=== PATIENT | female | born 1995 | race Caucasian/White ===

== ENCOUNTER 2017-10-24 09:20 | Emergency (ER) | payer SELFPAY ==
--- NOTE | 2017-10-24 09:48 | ED Physician Chart ---
ED Chief Complaint/HPI - Patient Information Date Seen:: 10/24/17 Time Seen:: 09:40 Chief Complaint:: Pelvic pain History of Present Illness:: 22 yo female had a copper IUD placed two weeks ago for 6-8 years history of abnormal vaginal bleeding. Subsequently, she developed pelvic pain, fluctuating from 6/10 to 10/10. She also had vaginal bleeding for 5 days after the IUD placement and stopped. Two days ago, vaginal bleeding resumed. Patient denied nausea, vomiting, fever or chills. Patient requested IUD to be removed. Allergies:: Allergies Allergy/AdvReac Type Severity Reaction Status Date / Time No Known Allergies Allergy Verified 10/24/17 09:28 Vitals:: Vital Signs - 8 hr 10/24/17 09:29 Temp 97.5 F HR 80 RR 16 BP 129/86 O2 Sat % 97 ED Review of Systems - Review of Systems General/Constitutional: No fever, No chills Skin: No skin lesions Head: No headache Eyes: No pain ENT: No nasal drainage Neck: No neck pain Cardio Vascular: No chest pain Pulmonary: No SOB GI: No nausea, No vomiting Slope Tender: Abnormal vaginal bleeding, Other (Pelvic pain) Musculoskeletal: No bone or joint pain Psychiatric: No prior psych history Neurological: No focal symptoms ED Past Medical History - Past Medical History Past Medical History: Other (menorrhagia for 6-8 years) Social History: Non Smoker, No Alcohol, No Drug Use Surgical History: None ED Physical Exam - Physical Examination General/Constitutional: Awake Head: Atraumatic Eyes: PERRL Skin: No skin lesions ENMT: Nasal exam nl Neck: No nuchal rigidity Respiratory: Clear to Auscultation Cardio Vascular: RRR, No murmur, gallop, rubs, NL S1 S2 GI: No tenderness/rebounding/guarding Other comments:: Vaginal exam showed blood clot and fresh blood at the cervix, IUD strings are visible at the cervix. Extremities: normal strength in all extremities Neuro/Psych: No focal deficits ED Labs/Radiology/EKG Results - Lab Results Results: Laboratory Last Values WBC 7.5 Th/cmm (4.8-10.8) 10/24/17 10:00 RBC 4.75 Mil/cmm (3.80-5.10) 10/24/17 10:00 Hgb 14.0 gm/dL (12-16) 10/24/17 10:00 Hct 41.6 % (41.0-60) 10/24/17 10:00 MCV 87.5 fl (81-100) 10/24/17 10:00 MCH 29.5 pg (27.0-31.0) 10/24/17 10:00 MCHC Differential 33.7 pg (28.0-36.0) 10/24/17 10:00 RDW 12.3 % (11.5-20.0) 10/24/17 10:00 Plt Count 194 Th/cmm (150-400) 10/24/17 10:00 MPV 8.8 fl 10/24/17 10:00 Neutrophils % 64.4 % (40.0-80.0) 10/24/17 10:00 Lymphocytes % 22.3 % (20.0-50.0) 10/24/17 10:00 Monocytes % 5.5 % (2.0-10.0) 10/24/17 10:00 Eosinophils % 4.6 % (0.0-5.0) 10/24/17 10:00 Basophils % 3.2 % (0.0-2.0) H 10/24/17 10:00 PT 11.0 SECONDS (9.5-11.5) 10/24/17 10:00 INR 1.06 (0.5-1.4) 10/24/17 10:00 PTT (Actin FS) 24.2 SECONDS (26.0-38.0) L 10/24/17 10:00 Sodium 137 mEq/L (136-145) 10/24/17 10:00 Potassium 4.5 mEq/L (3.5-5.1) 10/24/17 10:00 Chloride 106 mEq/L (98-107) 10/24/17 10:00 Carbon Dioxide 23.9 mEq/L (21.0-31.0) 10/24/17 10:00 Anion Gap 11.6 (7.0-16.0) 10/24/17 10:00 BUN 8 mg/dL (7-25) 10/24/17 10:00 Creatinine 0.7 mg/dL (0.6-1.2) 10/24/17 10:00 Est GFR ( Amer) > 60.0 ml/min (>90) 10/24/17 10:00 Est GFR (Non-Af Amer) > 60.0 ml/min 10/24/17 10:00 BUN/Creatinine Ratio 11.4 10/24/17 10:00 Glucose 110 mg/dL (70-105) H 10/24/17 10:00 Calcium 9.1 mg/dL (8.6-10.3) 10/24/17 10:00 Total Bilirubin 0.2 mg/dL (0.3-1.0) L 10/24/17 10:00 AST 15 U/L (13-39) 10/24/17 10:00 ALT 19 U/L (7-52) 10/24/17 10:00 Alkaline Phosphatase 92 U/L (34-104) 10/24/17 10:00 Total Protein 6.8 gm/dL (6.0-8.3) 10/24/17 10:00 Albumin 4.2 gm/dL (3.7-5.3) 10/24/17 10:00 Globulin 2.6 gm/dL 10/24/17 10:00 Albumin/Globulin Ratio 1.6 (1.0-1.8) 10/24/17 10:00 Urine Source RANDOM 10/24/17 10:35 Urine Color YELLOW 10/24/17 10:35 Urine Clarity HAZY (CLEAR) 10/24/17 10:35 Urine pH 6.0 (4.6 - 8.0) 10/24/17 10:35 Ur Specific [place] 1.020 (1.005-1.030) 10/24/17 10:35 Urine Protein NEGATIVE mg/dL (NEGATIVE) 10/24/17 10:35 Urine Glucose (UA) NEGATIVE mg/dL (NEGATIVE) 10/24/17 10:35 Urine Ketones NEGATIVE mg/dL (NEGATIVE) 10/24/17 10:35 Urine Blood LARGE (NEGATIVE) H 10/24/17 10:35 Urine Nitrate NEGATIVE (NEGATIVE) 10/24/17 10:35 Urine Bilirubin NEGATIVE (NEGATIVE) 10/24/17 10:35 Urine Urobilinogen 0.2 E.U./dL (0.2 - 1.0) 10/24/17 10:35 Ur Leukocyte Esterase NEGATIVE (NEGATIVE) 10/24/17 10:35 Urine RBC >100 /hpf (0-5) H 10/24/17 10:35 Urine WBC 2-5 /hpf (0-5) 10/24/17 10:35 Ur Epithelial Cells FEW /lpf (FEW) 10/24/17 10:35 Urine Bacteria 1+ /hpf (NONE SEEN) H 10/24/17 10:35 Urine Test NEGATIVE 10/24/17 10:35 - Radiology Results Results: Pelvic u/s: IUD in place, no other abnormalities ED Assessment - Assessment General Assessment: Pelvic pain Abnormal vaginal bleeding s/p IUD placement Assessment/Comments:: CBC, CMP, UA PT/PTT Removed IUD D/c home F/u Slope Tender or return to ER if abnormal vaginal bleeding persisted - Procedures Procedures:: Removal of IUD: Used vaginal spatula to expose cervix and IUD strings. Used curved hemostat clamp to reach and clamp the IUD strings, pulled the strings and the entire IUD out of the cervix without be bleeding or other complications. Removed the spatula. Patient tolerated the procedure well. Informed Consent: Procedure/risk/benefits explained by MD: Yes ED Septic Shock - . Is Septic Shock (SBP<90, OR Lactate>4 mmol\L) present?: No - <6hrs of presentation: Vital Signs: Vital Signs - 8 hr 10/24/17 09:29 Temp 97.5 F HR 80 RR 16 BP 129/86 O2 Sat % 97 ED Reassessment (Disposition) - Reassessment Reassessment Condition:: Improved - Patient Disposition Discharge/Transfer:: Home ED Discharge Plan - Patient Disposition Admit/Discharge/Transfer: PT DISCHARGED HOME Condition at Disposition: Improved Instructions: Pelvic Pain, Female Accepting Physician: Abdelrahman Corado [Active] -
[2017-10-24 10:07] LABS: % BASOPHILS 3.2 % (0.0-2.0); % EOSINOPHILS 4.6 % (0.0-5.0); % LYMPHOCYTES 22.3 % (20.0-50.0); % MONOCYTES 5.5 % (2.0-10.0); % NEUTROPHILS 64.4 % (40.0-80.0); BASOPHILE ABSOLUTE 0.2 Th/cumm (0-0.2); EOSINOPHILE ABSOLUTE 0.3 Th/cmm (0.1-0.4); HEMATOCRIT 41.6 % (41.0-60); LYMPHOCYTE ABSOLUTE 1.7 Th/cmm (1.5-3.0); MEAN CELL VOLUME 87.5 fl (81-100); MEAN CORPUSCULAR HEMOGLOBIN 29.5 pg (27.0-31.0); MEAN CORPUSCULAR HGB CONC 33.7 pg (28.0-36.0); MEAN PLATELET VOLUME 8.8 fl; MONOCYTE ABSOLUTE 0.4 Th/cmm (0.3-1.0); NEUTROPHILE ABSOLUTE 4.9 Th/cmm (1.8-8.0); PLATELET COUNT 194 Th/cmm (150-400); RED BLOOD COUNT 4.75 Mil/cmm (3.80-5.10); RED CELL DISTRIBUTION WIDTH 12.3 % (11.5-20.0); WHITE BLOOD COUNT 7.5 Th/cmm (4.8-10.8)
[2017-10-24 10:20] LABS: INR 1.06 (0.5-1.4)
[2017-10-24 10:32] LABS: ALB/GLOB RATIO 1.6 (1.0-1.8); ALBUMIN 4.2 gm/dL (3.7-5.3); ALKALINE PHOSPHATASE 92 U/L (34-104); ANION GAP 11.6 (7.0-16.0); BILIRUBIN,TOTAL 0.2 mg/dL (0.3-1.0); BUN - UREA NITROGEN 8 mg/dL (7-25); CALCIUM SERUM 9.1 mg/dL (8.6-10.3); CARBON DIOXIDE 23.9 mEq/L (21.0-31.0); CHLORIDE 106 mEq/L (98-107); CREATININE - SERUM 0.7 mg/dL (0.6-1.2); GFR AFRICAN-AMERICAN > 60.0 ml/min (>90); GFR NON AFRICAN-AMERICAN > 60.0 ml/min; GLUCOSE 110 mg/dL (70-105); POTASSIUM SERUM 4.5 mEq/L (3.5-5.1); SGOT 15 U/L (13-39); SGPT/ALT 19 U/L (7-52); SODIUM SERUM 137 mEq/L (136-145); TOTAL PROTEIN,SERUM 6.8 gm/dL (6.0-8.3)
[2017-10-24 11:32] LABS: URINE MICROSCOPIC INDICATED? YES; URINE SOURCE RANDOM
[2017-10-24 11:39] LABS: URINE BILIRUBIN NEGATIVE (NEGATIVE); URINE BLOOD LARGE (NEGATIVE); URINE GLUCOSE (UA) NEGATIVE (NEGATIVE); URINE KETONE NEGATIVE (NEGATIVE); URINE LEUKOCYTE ESTERASE NEGATIVE (NEGATIVE); URINE NITRATE NEGATIVE (NEGATIVE); URINE PROTEIN NEGATIVE (NEGATIVE); URINE UROBILINOGEN 0.2 E.U./dL (0.2 - 1.0)
[2017-10-24 11:46] LABS: URINE CLARITY HAZY (CLEAR); URINE COLOR YELLOW
[2017-10-24 11:53] LABS: URINE EPITHELIAL CELLS FEW /lpf (FEW); URINE RBC >100 /hpf (0-5)
[2017-10-24 11:54] LABS: URINE BACTERIA 1+ /hpf (NONE SEEN)
--- NOTE | 2017-10-25 07:49 | Diagnostic Imaging Report ---
Pelvic ultrasound HISTORY: Pain, IUD The exam is limited transabdominal sonographic technique. There is a normal uterine size (7.8 x 3.8 x 5.5 cm). No focal myometrial lesions are seen. The endometrium measures 8 mm thickness. A bright linear echogenic density traverses the endometrial region. The findings are consistent with patient's history of an IUD. The ovaries and adnexal regions are unremarkable. No abnormal masses. No free fluid in the pelvis. IMPRESSION: 1. Findings consistent with the patient's history of an IUD. 2. No other significant abnormalities
== END 2017-10-24 12:13 | disposition home or self-care (01) ==
LOC: ER 09:20
DX: R10.2 Pelvic and perineal pain (principal)
CPT/HCPCS: 36415-UA; 76856-TC; 80053-TC; 81001-TC; 81025-TC; 85025-TC; 85610-TC